=== PATIENT | female | born 1995 | race Caucasian/White ===

== ENCOUNTER 2019-09-16 16:50 | Emergency (ER) | payer OTHER ==
[2019-09-16 16:59] VITALS: BMI 30.2
--- NOTE | 2019-09-16 17:53 | PDOC ---
History of Present Illness - General Chief Complaint: Pain, Acute Stated Complaint: PAIN Time Seen by Provider: 09/16/19 17:37 History Source: Patient Exam Limitations: No Limitations - History of Present Illness Initial Comments: 09/16/19 17:53 HPI: 23yo F with no PMH presenting with RUQ for 2 weeks. Patient reports RUQ pain, worsening over the past 2 weeks, non-radiating, described as diffuse, not associated with meals, slightly improved with Tylenol this morning, exacerbated by sitting up / laying down and hugs, constantly present but worsened with certain movements. Reports normal PO intake with low water intake at baseline. Denies nausea, vomiting, fevers, chills, AMS, chest pain, diarrhea, constipation , SOB, dysuria, foul odor/color/blood in urine. Past History - Past Medical History Allergies/Adverse Reactions: Allergies Allergy/AdvReac Type Severity Reaction Status Date / Time No Known Allergies Allergy Verified 09/16/19 16:56 Home Medications: Ambulatory Orders No Home Medications 0 dose .ROUTE UTDICT 10/07/12 COPD: No - Reproductive History (#): 0 Para: 0 - Immunization History Immunization Up to Date: No - Psycho Social/Smoking Cessation Hx Smoking Status: No Smoking History: Never smoked Number of Cigarettes Smoked Daily: 0 Hx Alcohol Use: No Substance Use Type: None Review of Systems - Review of Systems Able to Perform ROS?: Yes Is the patient limited Kyrgyz proficient: Yes Constitutional: No: Chills, Fever HEENTM: No: Nose Congestion, Throat Pain Respiratory: No: Cough, Shortness of Breath, Productive cough Cardiac (ROS): No: Chest Pain, Edema, Irregular Heart Rate, Palpitations, Syncope, Chest Tightness ABD/GI: No: Constipated, Diarrhea, Nausea, Poor Appetite, Poor Fluid Intake, Vomiting : No: Burning, Dysuria, Discharge, Frequency Musculoskeletal: Yes: See HPI, Back Pain. No: Muscle Pain, Muscle Weakness Integumentary: No: Lumps, Pallor, Pruritus, Rash, Sweating Neurological: No: Headache, Numbness, Tingling, Weakness Psychiatric: No: Stressors, Change in Appetite Endocrine: No: Increased Thirst, Increased Urine Hematologic/Lymphatic: No: Anemia, Blood Clots, Easy Bleeding All Other Systems: Reviewed and Negative *Physical Exam - Vital Signs Last Vital Signs Temp Pulse Resp BP Pulse Ox 98 F 77 18 121/58 L 99 09/16/19 16:58 09/16/19 16:58 09/16/19 16:58 09/16/19 16:58 09/16/19 16:58 - Physical Exam 09/16/19 17:58 Vitals reviewed, AFVSS GEN: Well appearing, appears stated age, NAD, comfortable. AAOx3. HEENT: NCAT, EOMI, PERRL. Sclera anicteric, noninjected. No facial asymmetry. Moist mucous membranes. Normal voice. Trachea midline. CV: RRR, S1/S2, no murmurs / rubs / gallops appreciated. LUNG: CTAB, normal work of breathing. No wheezes, rales, rhonchi. No cough. Speaking full sentences. GI: Soft, TTP RUQ, +BS, +guarding, no rebound. No masses. Neg CVAT b/l. EXTREMITIES: 2+ distal pulses. No LE edema. No obvious deformities of all extremities. SKIN: Warm, dry, no rashes appreciated, non-jaundiced. PSYCH: Normal mood and affect. Cooperative and appropriate. NEURO: CN grossly intact. Moving all extremities well. Normal strength and sensation grossly. ED Treatment Course - LABORATORY CBC & Chemistry Diagram: 09/16/19 18:15 09/16/19 18:15 Medical Decision Making - Medical Decision Making 09/16/19 18:01 23yo F with no PMH presenting with RUQ for 2 weeks. History notable for subacute pain, worsening, worse with palpation. Exam, TTP RUQ, AFVSS, otherwise normal exam. DDX: Cholecystitis, hepatitis, MSK pain / muscle spasm, pancreatitis, PUD. - CBC, CMP, Lipase - UA, UCx, UPreg - Motrin 600 mg - RUQ US 09/16/19 19:15 - 1g Robaxin - Lidoderm Patch 09/16/19 19:37 - Labs within normal limits - CXR unremarkable, no fractures - RUQ US pending 09/16/19 20:04 - RUQ without stones, thickening, fluid Dispo: Home Discharge - Discharge Information Problems reviewed: Yes Clinical Impression/Diagnosis: Muscle ache, Biliary colic Condition: Improved Disposition: HOME - Admission No - Follow up/Referral Referrals: Conor Kat MD [Staff Physician] - - Patient Discharge Instructions Patient Printed Discharge Instructions: DI for Abdominal Muscle Strain Additional Instructions: Continue ibuprofen at home as per the package label for your pain. Follow up with the provided primary care doctor in the next week to establish care. Also call Dr. Kat, General Surgery, to make an appointment to discuss your possible gallbladder pains. Return to the ED for any new or concerning symptoms. - Post Discharge Activity Work/Back to School Note: Back to Work
[2019-09-16] MEDS ORDERED: IBUPROFEN 600 MG TABLET (FP) PO ONE (17:55)
--- NOTE | 2019-09-16 18:02 | PDOC ---
Attending Attestation - Resident Resident Name: Lemuel Snyder - ED Attending Attestation I have performed the following: I have examined & evaluated the patient, The case was reviewed & discussed with the resident, I agree w/resident's findings & plan, Exceptions are as noted - HPI HPI: 09/16/19 17:46 23y F presenting with 2 weeks of gradually worsening RUQ pain that is dull, constant, worse with certain position (sitting/laying down/twisting) and touch. not associated with food intake, non radiating. No associated n/v, f/c, cp, sob , vag bleeding, vag discharge, diarrhea, dysuria, frequency, foul smelling urine. Patient has never had this discomfort in the past. Patient took Tylenol yesterday with moderate improvement. Patient works in a bakery, denies any recent episodes of trauma or things that could have caused strain. Exam: GENERAL: The patient is awake, alert, and fully oriented, Nontoxic - in no acute distress. HEAD: Normocephalic, atraumatic. EYES: extraocular movements intact, sclera anicteric, conjunctiva clear. ENT: Normal voice, Moist mucous membranes. NECK: Normal range of motion, supple LUNGS: Breath sounds equal, clear to auscultation bilaterally. No wheezes, no rhonchi, no rales. HEART: Regular rate and rhythm, normal S1 and S2 without murmur, rub or gallop. ABDOMEN: Soft, nontender to abdomen, but there is focal tenderness to her R anterior ribs (no rash), No guarding, no rebound. No CVA tenderness EXTREMITIES: Normal range of motion, no edema. NEUROLOGICAL: No facial assymetry, Normal speech, PSYCH: Normal mood, normal affect. SKIN: Warm, Dry, normal turgor, no rashes to affected area 23-year-old presenting with 2 weeks of gradually worsening right upper quadrant/ right rib pain that is dull, positional, without any associated symptoms On exam the patient is well-appearing, no distress she does have some focal tenderness right in the right anterior ribs it is also exacerbated with twisting her torso towards the left against resistance. breath sounds b/l wo signs of ptx. no clinical signs of pna, no rashes to suggest an infectious cause. abd itself is soft nontender. I suspect patient's symptoms may be muscular in nature, possibly a mild strain sustained at work. We will give the patient medication for pain will also obtain basic blood work, UA, . - Physicial Exam PE: 09/20/19 12:45 see aabove - Medical Decision Making 09/20/19 12:45 see above
[2019-09-16 18:41] LABS: BASO % 0.4 % (0-2.0); EOS % 2.6 % (0-4.5); HEMATOCRIT 38.9 % (32.4-45.2); HEMOGLOBIN 13.2 GM/dL (10.7-15.3); LYMPH % 48.5 % (8-40); MCH 29.9 pg (25.7-33.7); MCHC 33.9 g/dl (32.0-36.0); MEAN CELL VOLUME 88.2 fl (80-96); MEAN PLT VOLUME 7.9 fl (7.5-11.1); NEUT % 41.5 % (42.8-82.8); PLATELET COUNT 369 K/MM3 (134-434); RBC 4.41 M/mm3 (3.60-5.2); WHITE BLOOD COUNT 7.1 K/mm3 (4.0-10.0)
[2019-09-16 18:42] LABS: PH,URINE 8.5 (5.0-8.0); URINE APPEARANCE CLEAR; URINE BILIRUBIN NEGATIVE (NEGATIVE); URINE COLOR YELLOW; URINE GLUCOSE (UA) NEGATIVE (NEGATIVE); URINE KETONE NEGATIVE (NEGATIVE); URINE LEUK ESTERASE NEGATIVE (NEGATIVE); URINE NITRITE NEGATIVE (NEGATIVE); URINE PROTEIN NEGATIVE (NEGATIVE)
[2019-09-16 19:11] LABS: ALBUMIN 4.1 g/dl (3.4-5.0); BILIRUBIN,TOTAL 0.2 mg/dL (0.2-1); CALCIUM 8.5 mg/dL (8.5-10.1); CREATININE 0.8 mg/dL (0.55-1.3); POTASSIUM 3.8 mmol/L (3.5-5.1); TOT PROT 7.7 g/dl (6.4-8.2)
[2019-09-16] MEDS ORDERED: LIDOCAINE 5% TOPICAL PATCH TP ONE (19:12)
[2019-09-16] MEDS ORDERED: METHOCARBAMOL 500 MG TABLET PO ONE (19:12)
[2019-09-16] MEDS ORDERED: METHOCARBAMOL 500 MG TABLET ONE (19:18)
[2019-09-16] MEDS ORDERED: LIDOCAINE 5% TOPICAL PATCH ONE (19:19)
--- NOTE | 2019-09-16 19:53 | PDOC ---
*Physical Exam - Vital Signs Last Vital Signs Temp Pulse Resp BP Pulse Ox 98 F 77 18 121/58 L 99 09/16/19 16:58 09/16/19 16:58 09/16/19 16:58 09/16/19 16:58 09/16/19 16:58 ED Treatment Course - LABORATORY CBC & Chemistry Diagram: 09/16/19 18:15 09/16/19 18:15 - ADDITIONAL ORDERS Additional order review: Laboratory Results 09/16/19 09/16/19 09/16/19 18:15 18:15 18:15 Sodium Potassium Chloride Carbon Dioxide Anion Gap BUN Creatinine Est GFR (CKD-EPI)AfAm Est GFR (CKD-EPI)NonAf Random Glucose Calcium Total Bilirubin AST ALT Alkaline Phosphatase Total Protein Albumin Lipase 157 Urine Color Yellow Urine Appearance Clear Urine pH 8.5 H D Ur Specific [place] 1.023 Urine Protein Negative Urine Glucose (UA) Negative Urine Ketones Negative Urine Blood Negative Urine Nitrite Negative Urine Bilirubin Negative Urine Urobilinogen 1.0 Ur Leukocyte Esterase Negative Urine HCG, Qual Negative 09/16/19 18:15 Sodium 140 Potassium 3.8 Chloride 108 H Carbon Dioxide 26 Anion Gap 6 L BUN 15.0 Creatinine 0.8 Est GFR (CKD-EPI)AfAm 120.44 Est GFR (CKD-EPI)NonAf 103.92 Random Glucose 84 Calcium 8.5 Total Bilirubin 0.2 AST 14 L ALT 27 Alkaline Phosphatase 119 H Total Protein 7.7 Albumin 4.1 Lipase Urine Color Urine Appearance Urine pH Ur Specific [place] Urine Protein Urine Glucose (UA) Urine Ketones Urine Blood Urine Nitrite Urine Bilirubin Urine Urobilinogen Ur Leukocyte Esterase Urine HCG, Qual 09/16/19 18:15 RBC 4.41 MCV 88.2 MCHC 33.9 RDW 13.0 D MPV 7.9 Neutrophils % 41.5 L Lymphocytes % 48.5 H D Monocytes % 7.0 Eosinophils % 2.6 D Basophils % 0.4 - Medications Given in the ED: ED Medications Discontinued Medications Generic Name Dose Route Start Last Admin Trade Name Freq PRN Reason Stop Dose Admin Ibuprofen 600 mg 09/16/19 17:55 09/16/19 18:02 Motrin - PO 09/16/19 17:56 600 mg ONCE ONE Administration Lidocaine 1 patch 09/16/19 19:12 09/16/19 19:22 Lidoderm Patch - TP 02/08/20 19:13 1 patch ONCE ONE Administration Methocarbamol 1,000 mg 09/16/19 19:12 09/16/19 19:22 Robaxin - PO 09/16/19 19:13 1,000 mg ONCE ONE Administration Medical Decision Making - Medical Decision Making 09/16/19 19:52 Pt comes with right chest pain when she twists. Labs normal. I asked for CXR, lidoderm patch and muscle relaxant. Pt had sono RUQ 1hr 45 min ago and I am awaiting results; we antione sono dept; sonograms are being read in house. Waiting. Pt feels well 09/16/19 20:02 Pt continues to have point tenderness at the RUQ; not chest pain; not rib pain it is over the GB; however no rebound and no guarding. She ate chicken 3.5 hrs ago, and she has thicken GB wall on sono as a result. But she has no GB stones. She has elevated Alk phos of 119 and her mom had GB out, similar fashing with normal labs and unclear presentation on multiple occasions. Pt understands that she needs to eat low fat diet; she will return for worsening 09/16/19 20:15 Sono normal; ready to go home; follow with gen surg as outpatient as needed. Return for worse sx and fever Discharge - Discharge Information Problems reviewed: Yes Clinical Impression/Diagnosis: Muscle ache, Biliary colic Condition: Improved Disposition: HOME - Follow up/Referral Referrals: Conor Kat MD [Staff Physician] - - Patient Discharge Instructions Patient Printed Discharge Instructions: DI for Abdominal Muscle Strain Additional Instructions: Continue ibuprofen at home as per the package label for your pain. Follow up with the provided primary care doctor in the next week to establish care. Also call Dr. Kat, General Surgery, to make an appointment to discuss your possible gallbladder pains. Return to the ED for any new or concerning symptoms. - Post Discharge Activity Work/Back to School Note: Back to Work
[2019-09-16 20:07] VITALS: BP 120/65; PULSE 67; TEMP 98
[2019-09-16] MEDS ORDERED: LIDOCAINE PATCH REMOVAL MC SCH (22:00)
== END 2019-09-16 20:19 | disposition home or self-care (01) ==
LOC: JER 16:50
DX: K80.50 Calculus of bile duct without cholangitis or cholecystitis without obstruction (principal); M79.18 Myalgia, other site
CPT/HCPCS: 36415; 71046-TC-FY; 76705-TC; 80053; 81003; 83690; 84703; 85025; 87086; 99283-25

== ENCOUNTER 2022-09-30 08:39 | Emergency (ER) | payer SELFPAY ==
[2022-09-30 08:53] VITALS: BP 117/67; PULSE 82; RESP 14; TEMP 98.1; BMI 32.5
[2022-09-30] MEDS ORDERED: KETOROLAC TROMETHAMINE 30 MG/1 ML VIAL IM ONE (09:41)
[2022-09-30] MEDS ORDERED: LIDOCAINE 5% TOPICAL PATCH TP ONE (09:42)
[2022-09-30] MEDS ORDERED: LIDOCAINE 5% TOPICAL PATCH ONE (09:54)
[2022-09-30] MEDS ORDERED: KETOROLAC TROMETHAMINE 30 MG/1 ML VIAL ONE (09:54)
== END 2022-09-30 10:15 | disposition home or self-care (01) ==
LOC: JERFT 08:39 → JER 08:39 → JERFT 10:15
PROC: 3E023GC Introduction of Other Therapeutic Substance into Muscle, Percutaneous Approach (ICD-10-PCS; principal; 2022-09-30)
DX: S30.0XXA Contusion of lower back and pelvis, initial encounter (principal); W01.0XXA Fall on same level from slipping, tripping and stumbling without subsequent striking against object, initial encounter
CPT/HCPCS: 72100-TC-FY; 99284-25